=== PATIENT | male | born 1935 | race Two or more races ===

== ENCOUNTER 2020-12-20 07:30 | Day surgery (SDC) | payer OTHER | END 2020-12-20 12:40 | disposition home or self-care (01) | LOC: AMB-ENDOS 07:30 → EDBD 13:45 | PROVIDERS: ATTEND Colon & Rectal Surgery | DX: D12.0 Benign neoplasm of cecum (principal); D12.3 Benign neoplasm of transverse colon; D12.5 Benign neoplasm of sigmoid colon; K64.8 Other hemorrhoids ==